=== PATIENT | male | born 1985 ===

== ENCOUNTER 2022-10-27 20:47 | Emergency (ER) | payer OTHER, SELFPAY ==
--- NOTE | ~2022-10-27 | XR_ITS ---
EXAMINATION: 1. Left forearm. 2. Left elbow 3. Left humerus CLINICAL INFORMATION: Trauma. Pain. COMPARISON: None. TECHNIQUE: 1. Left forearm. 2 views 2. Left elbow. 3 views 3. Left humerus. 2 views FINDINGS: 1. Left forearm. The mid and proximal shaft of the radius and ulna are normal. The wrist is unremarkable. 2. Left elbow. Slightly displaced fracture through the coronoid process of the ulna. The proximal radius is normal. Fluid in the elbow joint, hemarthrosis. 3. Left humerus. No fracture of the humerus. Shoulder is unremarkable. XR/XR elbow LT min 3V IMPRESSION: 1. Left forearm. Normal mid and proximal shaft of radius and ulna. 2. Left elbow. Slightly displaced fracture through the coronoid process of the ulna. 3. Left humerus. No acute abnormality of the humerus.
--- NOTE | ~2022-10-27 | XR_ITS ---
EXAMINATION: 1. Left forearm. 2. Left elbow 3. Left humerus CLINICAL INFORMATION: Trauma. Pain. COMPARISON: None. TECHNIQUE: 1. Left forearm. 2 views 2. Left elbow. 3 views 3. Left humerus. 2 views FINDINGS: 1. Left forearm. The mid and proximal shaft of the radius and ulna are normal. The wrist is unremarkable. 2. Left elbow. Slightly displaced fracture through the coronoid process of the ulna. The proximal radius is normal. Fluid in the elbow joint, hemarthrosis. 3. Left humerus. No fracture of the humerus. Shoulder is unremarkable. XR/XR forearm LT 2V IMPRESSION: 1. Left forearm. Normal mid and proximal shaft of radius and ulna. 2. Left elbow. Slightly displaced fracture through the coronoid process of the ulna. 3. Left humerus. No acute abnormality of the humerus.
--- NOTE | ~2022-10-27 | XR_ITS ---
EXAMINATION: 1. Left forearm. 2. Left elbow 3. Left humerus CLINICAL INFORMATION: Trauma. Pain. COMPARISON: None. TECHNIQUE: 1. Left forearm. 2 views 2. Left elbow. 3 views 3. Left humerus. 2 views FINDINGS: 1. Left forearm. The mid and proximal shaft of the radius and ulna are normal. The wrist is unremarkable. 2. Left elbow. Slightly displaced fracture through the coronoid process of the ulna. The proximal radius is normal. Fluid in the elbow joint, hemarthrosis. 3. Left humerus. No fracture of the humerus. Shoulder is unremarkable. XR/XR humerus LT IMPRESSION: 1. Left forearm. Normal mid and proximal shaft of radius and ulna. 2. Left elbow. Slightly displaced fracture through the coronoid process of the ulna. 3. Left humerus. No acute abnormality of the humerus.
[2022-10-27 21:39] VITALS: BP 138/74; PULSE 69; RESP 16; TEMP 36.6; O2SAT 99; BMI 28.3
--- NOTE | 2022-10-27 23:53 | ED_ITS ---
HPI - Extremity Problem General Chief complaint: Extremity Injury, Upper Stated complaint: Arm is broken? fall Time Seen by Provider: 10/27/22 23:47 Source: patient Mode of arrival: ambulatory Limitations: no limitations History of Present Illness HPI Narrative: Apparently patient was walking outside with his dog tripped over and fell landed on his left elbow came in with pain and swelling of over left elbow. No other injuries Related Data Previous Rx's Medication Instructions Recorded ibuprofen 600 mg tablet 600 mg PO Q6H PRN fever or pain 10/27/22 #30 tabs oxycodone 5 mg tablet 5 mg PO Q6H PRN pain #20 tabs 10/27/22 Allergies Allergy/AdvReac Type Severity Reaction Status Date / Time No Known Allergies Allergy Verified 10/27/22 21:38 Review of Systems Review of Systems: Yes all other systems are reviewed and are negative [facility] Social History Social History Patient Tobacco Use Status: Former Tobacco user Smoked in Last 30 Days: No Use of substances other than those prescribed or required for medical reasons: No Advance Directives: No Advance Directives Information Provided: No Physical Exam Vital Signs: Vital Signs: Last Vital Signs Temp 98.2 F 10/28/22 00:18 Pulse 60 10/28/22 00:18 Resp 20 10/28/22 00:18 BP 149/90 H 10/28/22 00:18 Pulse Ox 99 10/28/22 00:18 O2 Del Method Room Air 10/28/22 00:18 BMI result Body Mass Index 28.3 Appearance: Alert. Oriented X3. No acute distress. Eyes: PERRLA, No Nystagmus HEENT: Pharynx normal. Oral Mucosa moist AT NC Neck: Normal inspection. Neck supple. CVS: Normal heart rate and rhythm. Pulses normal. Respiratory: No respiratory distress. Equal air entry bilateral, Abdomen: Soft and nontender. Bowel sounds are present, Skin: Skin warm and dry. Normal skin color. Normal skin turgor. Extremities: No lower extremity edema. Tender swelling left elbow Neuro: Oriented X 3. No motor deficit. Extrem: Shoulder/upper arm images: 1. Tenderness with swelling neurovascular intact Medications Administered Discontinued Medications Generic Name Dose Route Start Last Admin Trade Name Freq PRN Reason Stop Dose Admin Oxycodone HCl 10 mg 10/27/22 23:53 10/28/22 00:17 Oxycodone Hcl Immed Release 5 Mg Tablet PO 10/27/22 23:54 10 mg ONCE ONE Administration Medical Decision Making Radiology Impression Discussion of test interpretation with radiology: I have reviewed the radiologist's reading. Radiologist Impression: XR/XR humerus LT IMPRESSION: 1.? Left forearm. Normal mid and proximal shaft of radius and ulna. 2.? Left elbow. Slightly displaced fracture through the coronoid process of the ulna. 3.? Left humerus. No acute abnormality of the humerus. Procedures Orthopedic Splinting/Casting Injury #1: Side: left Upper Extremity Injury Location: elbow Upper Extremity Immobilizer: sling/shoulder immobilizer and sugar tong splint Discharge Plan Discharge Clinical Impression: Elbow fracture, left Patient Disposition: Home, Self-Care Instructions: Elbow Fracture (ED) Additional Instructions: Keep your left arm in splint as provided Keep the left arm elevated Ibuprofen/oxycodone for pain Follow-up with orthopedic in a week Prescriptions: New ibuprofen 600 mg tablet 600 mg PO Q6H PRN (Reason: fever or pain) Qty: 30 0RF oxycodone 5 mg tablet 5 mg PO Q6H PRN (Reason: pain) Qty: 20 0RF Rx Instructions: Partial Fill upon patient request. Referrals: Darryl Fields MD [Physician] - 1 week Stand Alone Forms: Work/School Release Interventions: ED Discharge Assessment Last Done: 10/28/22 00:27 Discharge Date/Time: 10/28/22 00:31
[2022-10-28] MEDS: oxyCODONE HCl Immed Release 5 MG TABLET 10 MG PO (00:17)
[2022-10-28 00:18] VITALS: BP 149/90; PULSE 60; RESP 20; TEMP 36.8; O2SAT 99
--- NOTE | 2022-10-28 00:28 | PC.NURSE ---
pt medicated according to mar. pt ambulatory at discharge. vss. pt calm and cooperative. pt provided with discharge packet and work note. pt verbalized understanding of discharge plan
== END 2022-10-28 00:31 | disposition home or self-care (01) ==
PROVIDERS: Emergency Provider Internal Medicine
DX: S52.092A Other fracture of upper end of left ulna, initial encounter for closed fracture (principal); W01.0XXA Fall on same level from slipping, tripping and stumbling without subsequent striking against object, initial encounter; Y93.K1 Activity, walking an animal; Y92.414 Local residential or business street as the place of occurrence of the external cause; Y99.9 Unspecified external cause status; Z87.891 Personal history of nicotine dependence
CPT/HCPCS: 29105; 73060; 73080; 73090; 99283; 99284

== ENCOUNTER → 2022-11-04 09:50 | Outpatient (BNVA) | payer OTHER, SELFPAY | PROVIDERS: Visit Provider Physician Assistant | DX: S52.042A Displaced fracture of coronoid process of left ulna, initial encounter for closed fracture (principal) | CPT/HCPCS: 99202 ==

== ENCOUNTER 2022-11-06 18:02 | Emergency (ER) | payer OTHER, SELFPAY ==
--- NOTE | ~2022-11-06 | CT_ITS ---
Examination: CT left elbow without contrast. CLINICAL INDICATION: Pain left elbow. COMPARISON: Left elbow 10/27/2022. TECHNIQUE: Axial 3 mm thin and reformatted 1 mm thin sagittal and coronal images of left elbow were obtained. DLP 93 mGy/cm. This CT examination was performed using dose optimization technique as appropriate, variously including the following: Automated exposure control Adjustment of MA and/or KV according to patient size(this includes techniques or standardized protocols for targeted exams where dose is matched to indication/reason for exam; extremities or head. Use of iterative reconstruction techniques. FINDINGS: There is a small avulsion fracture along the intercondylar process with 2 mm anterior displacement. Also visualized is a small avulsion fracture tip of medial articulating olecranon process. A tiny bone fragment is also seen along the tip of posterior olecranon process likely a small enthesophyte. No additional fracture seen. There is minimal anterior joint effusion. FINDINGS: Small avulsion fracture with displacement of coronoid process. Tiny avulsion fracture medial anterior articulating olecranon process. Small enthesophyte along the tip of olecranon process posteriorly.
[2022-11-06 18:04] VITALS: BP 126/65; PULSE 83; RESP 18; TEMP 36.9; O2SAT 99; BMI 29.9
--- NOTE | 2022-11-06 18:04 | ED_ITS ---
HPI - General Adult General Chief complaint: Extremity Injury, Upper Stated complaint: Arm pain Time Seen by Provider: 11/06/22 18:08 Source: patient Mode of arrival: ambulatory Limitations: no limitations History of Present Illness HPI narrative: Patient is a 37 year old assigned male at with a history of a left ulnar fracture presenting to the emergency department today with left elbow pain. Patient states that he was just seen at the orthopedic office and told that he can stop wearing the sling and that they were going to get a CT scan to evaluate the fracture better. Patient states that his elbow is continuing to hurt, he needs a note for work, and he lost his sling. Patient denies any dizziness, lightheadedness, abdominal pain, nausea, vomiting, fever, chills, blurry vision, double vision, loss of vision, chest pain, difficulty breathing, shortness of breath, back pain, night sweats, pain with urination, increased urinary frequency, increased urinary urgency, blood in his urine or stool, syncope or a near syncopal episode, any new trauma or falls, bowel incontinence, bladder incontinence, bowel retention, bladder retention, or any other complaints at this time. Onset (ago): day(s) Location: left and upper extremity Radiation: non-radiation Severity: moderate Severity scale (1-10): 4 Pain Consistency: constant Relieving factors: immobilization Exacerbating factors: movement Associated symptoms: denies other symptoms Treatments prior to arrival: none Related Data Previous Rx's Medication Instructions Recorded ibuprofen 600 mg tablet 600 mg PO Q6H PRN fever or pain 10/27/22 #30 tabs oxycodone 5 mg tablet 5 mg PO Q6H PRN pain #20 tabs 10/27/22 Allergies Allergy/AdvReac Type Severity Reaction Status Date / Time No Known Allergies Allergy Verified 11/06/22 18:04 Review of Systems Constitutional: Constitutional: Reports no additional constitutional complaints, Denies chills, Denies fever(s) and Denies night sweats Eyes: Eyes: Reports no additional eye complaints, Denies blurry vision, Denies change in vision, Denies diplopia, Denies eye discharge, Denies loss of vision and Denies eye pain ENT: Denies dizziness Cardiovascular: Cardiovascular: Reports no additional cardiovascular complaints, Denies chest pain, Denies lightheadedness, Denies Loss of Consciousness and Denies dyspnea Respiratory: Respiratory: Reports no additional respiratory complaints and Denies dyspnea Gastrointestinal: Gastrointestinal: Reports no additional gastrointestinal complaints, Denies abdominal pain, Denies melena, Denies hematochezia, Denies change in bowel habits and Denies change in stool character Genitourinary: Genitourinary: Reports no additional male genitourinary complaints, Denies hematuria, Denies oliguria, Denies difficulty urinating, Denies dysuria, Denies urinary frequency, Denies urinary hesitancy, Denies urinary incontinence and Denies urinary urgency Musculoskeletal: Musculoskeletal: Reports no additional musculoskeletal complaints, Denies numbness and Denies tingling Comments: left elbow pain Neurologic: Denies dizziness, Denies loss of vision, Denies numbness and Denies tingling Psychiatric: Psychiatric: Reports no additional psychiatric complaints Endocrine: Endocrine: Reports no additional endocrine complaints Hematologic/Lymphatic: Hematologic/Lymphatic: Reports no additional hematologic/lymphatic complaints Allergic/Immunologic: Allergic/Immunologic: Reports no additional allergic/immunologic complaints PMFSH Past Medical History Attestation statement: The following information was validated with the patient. Source: old records reviewed and nursing notes reviewed Social History Social History Patient Tobacco Use Status: Former Tobacco user Advance Directives: No Advance Directives Information Provided: No Current occupational status: employed Current occupation: [employer] Physical Exam ED Vital Signs: Vital Signs - 24 hr 11/06/22 18:04 Temperature 98.4 F Pulse Rate 83 Respiratory Rate 18 Blood Pressure 126/65 Pulse Oximetry 99 Oxygen Delivery Method Room Air BMI result Body Mass Index 29.9 Const General: cooperative, no acute distress, alert and awake Nutritional Appearance: well nourished Orientation/consciousness: patient oriented x3 Limitations: no limitations HENUT Head: Yes normal to inspection and Yes atraumatic Ears: hearing grossly normal bilaterally and external ears normal General nose exam: Normal external nose present, no nasal discharge noted and no epistaxis Face and sinus: Yes normal facial exam, No abrasion and No laceration Mouth: Normal oral and palatal mucosa present, no drooling and no muffled voice Eyes General: appearance normal, both eyes and all related structures Periorbital: periorbital findings normal Eyelids: Yes eyelids normal Conjunctivae: conjunctivae normal Pupils: Equal, round and reactive pupils present EOM: EOMs intact bilaterally Neck Neck: Yes normal visual inspection, Yes full ROM and Yes no lymphadenopathy Chest Chest palpation & inspection: normal inspection of the chest Resp Effort & Inspection: normal respiratory effort and able to speak in complete sentences GI Inspection: Yes normal to inspection Neuro General: patient oriented x3 and moves all extremities Cranial nerves: Yes Equal, round and reactive pupils present Cognition (Neuro): normal cognition Motor exam (neuro): 5/5 motor strength present throughout Sensory Exam: Normal double simultaneous stimulation for sensation Coordination: [id number] test normal Extrem Other: pain with left elbow ROM General: Yes normal to inspection and Yes capillary refill normal Psych Appearance: grossly normal Mental Status: mental status grossly normal Affect: normal affect Attitude: cooperative Thought process: Normal thought process present Thought content: Normal thought content present Insight: Good insight present (Psych) Course Course Course Narrative: RME performed by Deyanira Mustafa PA-C. Patient is a 37 year old assigned male at presenting to the emergency department with left arm pain. Patient was seen by ortho 2 days ago for a left ulnar fx where they ordered a CT of the left elbow. However, patient is having much more pain now. Imaging ordered. Patient placed back in the waiting room pending room availability and results. Procedures Orthopedic Splinting/Casting Injury #1: Side: left Upper Extremity Injury Location: elbow Upper Extremity Immobilizer: sling/shoulder immobilizer Medical Decision Making Medical Decision Making MDM Narrative: Patient is a 37 year old assigned male at with a history of a left ulnar fracture presenting to the emergency department today with continued left elbow pain. Patient's physical exam showed pain with left elbow ROM. Patient's left elbow CT showed a left ulnar fracture. I explained my physical exam findings as well as all test results to the patient. I answered all questions asked by the patient. Patient's left elbow was placed back into a sling, without incident. I stressed the importance of the patient taking his medication as prescribed. I stressed the importance of the patient following up with his primary care provider and his orthopedic provider. I stressed the importance of the patient returning to the emergency department immediately if his symptoms were to worsen or if he were to develop any dizziness, shortness of breath, difficulty breathing, chest pain, blurry vision, loss of vision, nausea, vomiting, abdominal pain, fever, chills, back pain, or any other complaints. Patient verbalized agreement and understanding with this treatment plan and discharge. Differential Diagnosis Differential Diagnoses: The differential diagnosis associated with the presentation includes left ulnar fx Admission/Observation Consideration of admission/observation: Escalation of care including admission/observation considered Patient would have been admitted has his injury required immediate surgical intervention. Consult Healthcare Provider Management of the patient was discussed with: Browning Processor (spoke with the orthopedic team who recommended placing the patient back in a sling and having him follow up in the office.) Independent Interpretation I performed an independent interpretation of an: CT Scan Interpretation: My interpretation is in agreement with the radiologist's impression of this imaging study. Examination: CT left elbow without contrast. CLINICAL INDICATION: Pain left elbow. COMPARISON: Left elbow 10/27/2022. TECHNIQUE: Axial 3 mm thin and reformatted 1 mm thin sagittal and coronal images of left elbow were obtained. DLP 93 mGy/cm. This CT examination was performed using dose optimization technique as appropriate, variously including the following: Automated exposure control Adjustment of MA and/or KV according to patient size(this includes techniques or standardized protocols for targeted exams where dose is matched to indication/reason for exam;? extremities or head. Use of iterative reconstruction techniques. FINDINGS: There is a small avulsion fracture along the intercondylar process with 2 mm anterior displacement. Also visualized is a small avulsion fracture tip of medial articulating olecranon process. A tiny bone fragment is also seen along the tip of posterior olecranon process likely a small enthesophyte. No additional fracture seen. There is minimal anterior joint effusion. FINDINGS: Small avulsion fracture with displacement of coronoid process. Tiny avulsion fracture medial anterior articulating olecranon process. Small enthesophyte along the tip of olecranon process posteriorly. Dictated By: Justyn Chen MD Signed By: Electronically signed by Justyn Chen MD 11/06/221958 Critical Care Time Critical Care Time Critical Care Time: Yes Total Critical Care Time: 30 Attestation: I spent 30 minutes of Critical Care Time with this patient. This does not include time spent on separately reported billable procedures. Discharge Plan Discharge Clinical Impression: Fracture of coronoid process of left ulna Patient Disposition: Home, Self-Care Instructions: Elbow Fracture (ED), How to Use a Sling (ED) Additional Instructions: Follow up with your primary care provider and an orthopedic provider. Return to the emergency department immediately if your symptoms worsen or if you develop any dizziness, shortness of breath, difficulty breathing, chest pain, blurry vision, loss of vision, nausea, vomiting, abdominal pain, fever, chills, back pain, or any other complaints. Prescriptions: No Action ibuprofen 600 mg tablet 600 mg PO Q6H PRN (Reason: fever or pain) Qty: 30 0RF oxycodone 5 mg tablet 5 mg PO Q6H PRN (Reason: pain) Qty: 20 0RF Rx Instructions: Partial Fill upon patient request. Referrals: [facility] [place] Family Medicine [Provider Group] (Call to establish and follow up with a primary care provider. If you already have a primary care provider, please follow up with them.) [facility] [place] [facility] [Provider Group] (Call to establish and follow up with a primary care provider. If you already have a primary care provider, please follow up with them.) [facility] [place] Primary [facility] [Provider Group] (Call to establish and follow up with a primary care provider. If you already have a primary care provider, please follow up with them.) [facility] [Provider Group] (Call to schedule a follow up appointment now that your CT scan has been completed. ) Stand Alone Forms: Work/School Release Interventions: ED Discharge Assessment Last Done: 11/06/22 19:38 Discharge Date/Time: 11/06/22 19:39 Print Language: Polish
== END 2022-11-06 19:39 | disposition home or self-care (01) ==
PROVIDERS: Emergency Provider Internal Medicine
DX: S52.042A Displaced fracture of coronoid process of left ulna, initial encounter for closed fracture (principal); X58.XXXA Exposure to other specified factors, initial encounter; Y93.9 Activity, unspecified; Y92.9 Unspecified place or not applicable; Y99.9 Unspecified external cause status
CPT/HCPCS: 73200; 99282; 99284

== ENCOUNTER 2022-11-09 23:48 | Emergency (ER) | payer OTHER, SELFPAY ==
[2022-11-09 23:53] VITALS: BP 124/72; PULSE 60; RESP 16; TEMP 36.8; O2SAT 98; BMI 23.3
--- OUTSIDE RECORDS SUMMARY | 2022-11-10 01:08 | XMS_ITS | Continuity of Care Document ---
Author Name Unknown Organization [facility] ter Address [address] [place] [id number]- Care Team Providers Care Social Insurance Adviser Name Role Phone Not on Staff, PCP Primary Care Physician Unavail able Encounter [facility] Date(s): 10/29/22 - 10/30/[address] [address]- Encounter Diagnosis Radial head fracture(Final) - 10/30/22 Discharge Disposition: A-D/C Home Attending Physician: Sarah Davis MD Admitting Physician: Sarah Davis MD Referring Physician: Not on Staff, Referring MD Allergies, Adverse Reactions, Alerts No Known Allergies Immunizations Given and Recorded Vaccine Date Status Refusal Reason Hepatitis A Pediatric Vaccine 1 07/03/03 Given tetanus-diphtheria toxoids (Td) 2 08/19/00 Given tetanus-diphtheria toxoids (Td) 3 02/05/98 Given Poliovirus Vaccine, Inactivated 4 08/19/00 Given Poliovirus Vaccine, Inactivated 5 01/31/98 Given Poliovirus Vaccine, Inactivated 6 09/25/97 Given hepatitis B pediatric vaccine 7 01/26/99 Given hepatitis B pediatric vaccine 8 04/30/98 Given hepatitis B pediatric vaccine 9 02/05/98 Given Measles/Mumps/Rubella Virus Vaccine 10 12/02/97 Gi nelson Measles/Mumps/Rubella Virus Vaccine 11 10/02/97 Gi nelson Measles/Mumps/Rubella Virus Vaccine 12 09/25/97 Gi nelson diphtheria/tetanus/pertussis, acel(DTaP) 13 09/25/97 Given influenza virus vaccine, inactivated 14 04/30/90 G iven 1Admin Note: Given by nurse 2Admin Note: Given by nurse 3Admin Note: Given by nurse 4Admin Note: Given by nurse 5Admin Note: Given by nurse 6Admin Note: Given by nurse 7Admin Note: given by another practices. 8Admin Note: given by another practices. 9Admin Note: given by another practices. 10Admin Note: Given by nurse 11Admin Note: Given by nurse 12Admin Note: Given by nurse 13Admin Note: Give by nurse 14Admin Note: Given by nurse Medications ibuprofen 600 mg oral tablet 1 tablet = 600 mg, By Mouth, Daily at bedtime, with food or milk, # 20 tablet, 0 Refills, Maintenance Start Date: 09/12/10 Status: Ordered ondansetron 4 mg oral tablet, disintegrating 1 tablet = 4 mg, By Mouth, Every 6 hours, PRN as needed for nausea/vomiting, # 10 tablet, 0 Refills, Maintenance, 09/25/22 22:36:00 EDT, DIS Tablet, [facility], Partial fill upon patient request if the prescription is for a schedule II o... Start Date: 09/25/22 Status: Ordered Prilosec 40 mg oral enteric coated capsule 1 capsule, By Mouth, Daily, # 30 capsule, 0 Refills, EC Capsule Start Date: 07/09/09 Stop Date: 08/07/09 Status: Ordered Results Radiology Reports * Exam Date Time Procedure Performing Provider Status 10/29/22 9:48 PM Forearm 2 Views Left Charmaine Ortiz; Auth (Verified) Notes: (Forearm 2 Views Left) Reason For Exam: with Pain;Trauma RESULT: Forearm 2 Views Left Forearm 2 Views Left INDICATION: pt states he was seen 3-4 days ago at [facility] for a left arm fx, was splinted and states the pain is worse. Trauma; with Pain; Clinical Question(s): Fracture COMPARISON: None. FINDINGS: Mild volar displacement of the left radial head fracture fragment. The visualized joint spaces are normal. Cast material overlies the left forearm and elbow. IMPRESSION: Mildly displaced left radial head fracture. No prior studies are available for comparison. An actionable message (Garza) has been communicated via the [employer] system on 10/29/2022 11:11 PM, Message ID [id number]. I have personally reviewed the images and I agree with this report. WSN: [id number] Ordering Physician: Shoaib Schwartz Dictated By: Johan Boland DO Dictated Date/Time: 10/29/22 11:11 p Reviewed By: Lucas Trejo MD Signed By: Lucas Trejo MD Signed Date/Time: 10/29/22 11:16 pm Transcribed By: FARHAD Transcribed Date/Time: 10/29/22 10:59 pm Vital Signs Most recent to oldest [Reference Range]: 1 Oxygen Saturation [94-100 %] 99 % (10/29/22 11:04 PM) Pulse Rate [55-90 bpm] 60 bpm (10/29/22 11:04 PM) Blood Pressure [90-138/55-84 mm Hg] 134/ 87mm Hg (10/29/22 11:04 PM) Respiratory Rate [16-30 br/min] 15 br/mi n *L* (10/29/22 11:04 PM) Temperature [96.8-100.4 DegF] 98.2 DegF (10/29/22 11:04 PM) Mode of Delivery (Oxygen) Room air (10/29/22 11:04 PM) Blood pressure sites Arm, right (10/29/22 11:04 PM) Temperature Route Oral (10/29/22 11:04 PM) XR Radius and Ulna - left 2 Views * [facility] , CIS S: TRANSCRIBE Lucas Trejo MD: VERIFY Johan Boland DO: SIGN Event Display: Result: Authored Date: Forearm 2 Views Left INDICATION: pt states he was seen 3-4 days ago at [facility] for a left arm fx, was splinted and states the pain is worse. Trauma; with Pain; Clinical Question(s): Fracture COMPARISON: None. FINDINGS: Mild volar displacement of the left radial head fracture fragment. The visualized joint spaces are normal. Cast material overlies the left forearm and elbow. IMPRESSION: Mildly displaced left radial head fracture. No prior studies are available for comparison. An actionable message (Garza) has been communicated via the [employer]Focus system on 10/29/2022 11:11 PM, Message ID [id number]. I have personally reviewed the images and I agree with this report. WSN: [id number] Ordering Physician: Shoaib Schwartz Dictated By: Johan Boland DO Dictated Date/Time: 10/29/22 11:11 p Reviewed By: Lucas Trejo MD Signed By: Lucas Trejo MD Signed Date/Time: 10/29/22 11:16 pm Transcribed By: FARHAD Transcribed Date/Time: 10/29/22 10:59 pm Patient Care team information Care Team Personnel Name: Not on Staff, PCP Position: [facility] Physician (General Medicine) Member Role: PCP Name: *[facility], ED Attending Position: [facility] ED Attendings Patient Name: Monse Starkey Position: [facility] ED TA [facility] Name: Sarah Davis MD Position: [facility] Resident Member Role: ED Attending Physician Address: Address: [address] [place] [address] Name: Jaz Jorge RN Position: [facility] ED RN W/OE and Tasks Member Role: Patient Care Provider Care Team Related Persons Name: KATHLEEN DURBIN Address: [place] [address]
--- OUTSIDE RECORDS SUMMARY | 2022-11-10 01:08 | XMS_ITS | Continuity of Care Document ---
Author Name Unknown Organization [facility] ter Address [address] [place] [id number]- Care Team Providers Care Carbon Paper Interleafer Name Role Phone Mary Anne MILLER, Gala Kan Primary Care Physician Encounter [facility] Date(s): 09/25/22 - 09/25/[address] [address]- Encounter Diagnosis Gastroenteritis(Final) - 09/25/22 Discharge Disposition: A-D/C Home Attending Physician: Giancarlo Chris MD Admitting Physician: Giancarlo Chris MD Referring Physician: Not on Staff, Referring [...] Refills, Maintenance, 09/25/22 22:36:00 EDT, DIS Tablet, [facility], Partial fill upon patient request if the prescription is for a schedule II o... Start Date: 09/25/22 Status: Ordered Prilosec 40 mg oral enteric coated capsule 1 capsule, By Mouth, Daily, # 30 capsule, 0 Refills, EC Capsule Start Date: 07/09/09 Stop Date: 08/07/09 Status: Ordered Results Radiology Reports * Exam Date Time Procedure Performing Provider Status 09/25/22 7:[address] Abd/Pelvis W/ IV Contrast Only Africa Smith; Auth (Verified) Notes: (CT Abd/Pelvis W/ IV Contrast Only) Reason For Exam: LLQ abdominal pain;Other: RESULT: CT Abd/Pelvis W/ IV Contrast Only CT Abd/Pelvis W/ IV Contrast Only HX OF PRESENT ILLNESS: Pt BIBA from home with chest pain SOB since 8 am. Reports N V D chills starting at the same time. 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 A ox4; Reason: LLQabdominal pain; Clinical Question(s): Obstruction TECHNIQUE: Spiral CT through the abdomen and pelvis with IV contrast formatted in 3 planes. 100 cc of Omnipaque 300 was administered intravenously. This study was performed without oral contrast. Weight-based protocol using automatic tube modulation was used to optimize exposure parameters. CTDIvol Body: 18.20 mGy, DLP Body: 974 mGy*cm. COMPARISON: None. FINDINGS: Cargo Trimmer View Findings, Lines and Tubes: None. Visualized Chest: Lung bases are clear. No pleural effusion. The heart is normal in size. No pericardial effusion. Diaphragm: Normal. Liver: Diffuse low-attenuation throughout the liver parenchyma consistent with hepatic steatosis. No evidence of mass. Gallbladder: Absent consistent with prior cholecystectomy. Bile ducts: No biliary ductal dilation. Spleen: Normal. Pancreas: Normal. Adrenal glands: Normal. Kidneys and ureters: No hydronephrosis, stones, or suspicious masses. Bladder: Normal. Reproductive organs: Moderate prostatomegaly. Otherwise unremarkable. Stomach, small bowel, and large bowel: Unremarkable stomach, small and large bowel. No evidence of bowel obstruction or acute inflammation. Appendix: Normal. Peritoneum and retroperitoneum: No ascites or pneumoperitoneum. No omental or mesenteric lesions. Lymph nodes: No enlarged lymph nodes. Blood vessels: Mild vascular calcifications but no aneurysm. No evidence of venous thrombosis. Abdominal and pelvic wall: Unremarkable. Bones: No acute abnormality. IMPRESSION: No acute abnormality of the abdomen or pelvis to explain symptoms. I have personally reviewed the images and I agree with this report. WSN: [id number] Ordering Physician: Lucía Eid Dictated By: Rosanne Faria MD Dictated Date/Time: 09/25/22 7:22 pm Reviewed By: Marcos Flores MD Signed By: Marcos Flores MD Signed Date/Time: 09/25/22 7:27 pm Transcribed By: FARHAD Transcribed Date/Time: 09/25/22 7:20 pm Vital Signs Most recent to oldest [Reference Range]: 1 2 3 Oxygen Saturation [94-100 %] 100 % (09/26/22 12:05 AM) 99 % (09/25/22: PM) 97 % (09/25/22: PM) Pulse Rate [55-90 bpm] 62 bpm (09/26/22 12:05 AM) 60 bpm (09/25/22: PM) 63 bpm (09/25/22: PM) Blood Pressure [90-138/55-84 mm Hg] 104/58mm Hg (09/26/22 12:05 AM) 115/48mm Hg (09/25/22: PM) 118/82mm Hg (09/25/22 8:28 PM) Respiratory Rate [16-30 br/min] 18 br/min (09/26/22 12:05 AM) 14 br/min *L* (09/25/22 10:23 PM) 18 br/min (09/25/22 8:28 PM) Temperature [96.8-100.4 DegF] 97.9 DegF (09/25/22 5:52 PM) Mode of Delivery (Oxygen) Room air (09/26/22 12:05 AM) Room air (09/25/22 10:23 PM) Room air (09/25/22 8:28 PM) Blood pressure sites Arm, right (09/26/22 12:05 AM) Arm, right (09/25/22 10:23 PM) Arm, right (09/25/22 8:28 PM) Temperature Route Oral (09/25/22 5:52 PM) Note * Director Lucía THOMAS: PERFORM Event Display: Patient Education Leaflets Authored Date: [id number] Noninfectious Gastroenteritis (Adult) ?? [id number] Noninfectious Gastroenteritis (Adult) Gastroenteritis can cause nausea, vomiting, diarrhea, and cramping in the belly. This may occur from food sensitivity, inflammation of your??digestive tract, medicines, stress, or other causes not related to infection.??Your symptoms will??usually??last from 1 to 3 days, but can last longer.??Antibiotics don't work against this illness. Simple home treatment will help. Home care Medicine ??? You may use acetaminophen??or NSAID medicines such as ibuprofen or naproxen to control fever, unless another medicine is prescribed. If you have chronic liver or kidney disease, or ever had a stomach ulcer or digestive bleeding, talk with your healthcare provider before using these medicines.)Aspirin should never be used in anyone under 18 years of age who is ill with a fever. It may cause severe liver damage. Don't increase your NSAID medicines if you are already taking these medicines foranother condition such as arthritis. Don't use NSAIDs if you are on aspirin. For example, if you take aspirin for heart disease or after a stroke. ??? If medicines for diarrhea or vomiting??are prescribed, take only as directed. General care and preventing spread of the illness ??? If symptoms are severe, rest at home for the next 24 hours or until you feel better. ??? Washing your hands with soap and clean, running water is the best way to prevent the spread of infection. Wash your hands after touching anyone who is sick. ??? Teach all people in your home when and how towash their hands Wet your hands with clean, running water. Lather soap on the backs of your hands, between your fingers, and under your nails. Scrub your hands for at least 20 seconds. If you need a timer, try humming the Happy Birthday song from beginning to end twice. Rinse your hands well and dry using a clean towel. ??? Wash your hands after using the toilet, touching animals, coughing or sneezing, preparing meals, and before eating meals. ??? Clean the toilet after each use. ??? Caffeine, tobacco, and alcohol can make your diarrhea, cramping, and pain worse. Consider having less or giving up these things until you have recovered. Diet ??? Water and clear liquids are important so you don't get dehydrated. Drink a small amount at a time. ??? Don't force yourself to eat, especially if you have cramps, vomiting, or diarrhea. When you finally decide to start eating, don't eat large amounts at a time, even if you are hungry. ??? If you eat, don't have fatty, greasy, spicy, or fried foods. ??? Don't eat dairy products if you have diarrhea. They can make the diarrhea worse. During the first 24 hours (the first full day), follow the diet below ??? Beverages. Water, clear liquids, soft drinks without caffeine, mineral water (plain or flavored), and decaffeinated tea and coffee. ??? Soups. Clear broth, consomm??, and bouillon. Sports drinks aren't a good choice because they have too much sugar and not enough electrolytes. In this case, useproducts called oral rehydration solutions. ??? Desserts. Plain gelatin, ice pops, and fruit juice bars. During the next 24 hours??(the second day) During the second day, you may add to the above list if you are better. If not, continue what you did the first day. ??? Hot cereal, plain toast, bread, rolls, or crackers ??? Plain noodles, rice, mashed potatoes, orchicken noodle or rice soup ??? Unsweetened canned fruit and bananas. Don't eat pineapple or citrus. ??? Limit caffeine and chocolate. No spices or seasonings except salt. During the next 24 hours ??? Gradually go back to a normal diet, as you feel better and your symptoms improve. ??? If at any time your symptoms start getting worse, go back to clear liquids until youfeel better. ?? Food preparation ??? If you have diarrhea, don't prepare food for others. When you?? prepare food for yourself, wash your hands before and after. ??? Wash your hands after using cutting boards, countertops, and knives that have been in contact with raw food. ??? Keep uncooked meats away from cookedand [id number] foods. ?? Follow-up care Follow up with your??healthcare provider if you are not improving over the next 2 to 3 days, or as advised. If a stool (diarrhea) sample was taken,??call for the results as directed. ?? Call 911 Call 911 if any of these occur: ??? Trouble breathing ??? Chest pain ??? Confusion ??? Severe drowsiness or trouble awakening ??? Seizure ??? Stiff neck ?? When to seek medical advice Call your healthcare provider right away if any of these occur:? Increasing belly pain or constant lower right belly pain ??? Continued vomiting (unable to keep liquids down) ??? Frequent diarrhea (more than 5 times a day) ??? Blood in vomit or stool (black or red color) ??? Inability to tolerate solid food after a few days. ??? Dark urine, reduced urine output ??? Weakness or dizziness ??? D rowsiness ??? Fever of 100.4??F (38.0??C) or higher, or as directed by your healthcare provider ???New rash ??? Symptoms get worse or you have new symptoms ?? Last Reviewed Date: 2021 ?? [id number] [employer]. All rights reserved. This information is not intended as a substitute for professional medical care. Always follow your healthcare professional's instructions. ?? CT Abdomen and Pelvis W contrast IV * [facility] , CIS S: TRANSCRIBE Marcos Flores MD: VERIFY Rosanne Faria MD: SIGN Event Display: Result: Authored Date: CT Abd/Pelvis W/ IV Contrast Only HX OF PRESENT ILLNESS: Pt BIBA from home with chest pain SOB since 8 am. Reports N V D chills starting at the same time. 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 A ox4; Reason: LLQabdominal pain; Clinical Question(s): Obstruction TECHNIQUE: Spiral CT through the abdomen and pelvis with IV contrast formatted in 3 planes. 100 cc of Omnipaque 300 was administered intravenously. This study was performed without oral contrast. Weight-based protocol using automatic tube modulation was used to optimize exposure parameters. CTDIvol Body: 18.20 mGy, DLP Body: 974 mGy*cm. COMPARISON: None. FINDINGS: Cargo Trimmer View Findings, Lines and Tubes: None. Visualized Chest: Lung bases are clear. No pleural effusion. The heart is normal in size. No pericardial effusion. Diaphragm: Normal. Liver: Diffuse low-attenuation throughout the liver parenchyma consistent with hepatic steatosis. No evidence of mass. Gallbladder: Absent consistent with prior cholecystectomy. Bile ducts: No biliary ductal dilation. Spleen: Normal. Pancreas: Normal. Adrenal glands: Normal. Kidneys and ureters: No hydronephrosis, stones, or suspicious masses. Bladder: Normal. Reproductive organs: Moderate prostatomegaly. Otherwise unremarkable. Stomach, small bowel, and large bowel: Unremarkable stomach, small and large bowel. No evidence of bowel obstruction or acute inflammation. Appendix: Normal. Peritoneum and retroperitoneum: No ascites or pneumoperitoneum. No omental or mesenteric lesions. Lymph nodes: No enlarged lymph nodes. Blood vessels: Mild vascular calcifications but no aneurysm. No evidence of venous thrombosis. Abdominal and pelvic wall: Unremarkable. Bones: No acute abnormality. IMPRESSION: No acute abnormality of the abdomen or pelvis to explain symptoms. I have personally reviewed the images and I agree with this report. WSN: [id number] Ordering Physician: Lucía Eid Dictated By: Rosanne Faria MD Dictated Date/Time: 09/25/22 7:22 pm Reviewed By: Marcos Flores MD Signed By: Marcos Flores MD Signed Date/Time: 09/25/22 7:27 pm Transcribed By: FARHAD Transcribed Date/Time: 09/25/22 7:20 pm Patient Care team information Care Team Personnel Name: Mary Anne VIDEO RECORDER MECHANIC, Gala Kan Position: [facility] PCO Associate Professional Member Role: PCP Address: Address: [address] [place] [address]- Name: Director Lucía THOMAS Position: [facility] Resident Member Role: ED Resident Address: Address: [address] [place] [address] Name: Giancarlo Chris MD Position: [facility] ED Medicine MD Member Role: Admitting Physician Address: Address: [address] [place] [address] Department of Emergency Medicine [address] Name: Tiff Delaney RN Position: [facility] ED RN W/OE and Tasks Member Role: Patient Care Provider Name: Arabella Castillo Position: [facility] ED TA [place] Name: Deloris Atwood RN Position: [facility] ED RN W/OE and Tasks Member Role: Patient Care Provider Care Team Related Persons Name: KATHLEEN DURBIN Address: [place] [address]
--- OUTSIDE RECORDS SUMMARY | 2022-11-10 01:08 | XMS_ITS | Continuity of Care Document ---
Author Name Unknown Organization [facility] ter Address [address] [place] [address]- Care Team Providers Care Rawhide Bone Roller Name Role Phone Not on Staff, PCP Primary Care Physician Unavail able Encounter [facility] Date(s): 09/07/22 - 09/07/[address] [address]- Discharge Disposition: A-D/C Walkout Attending Physician: Not on Staff, Attending MD Admitting Physician: Not on Staff, Admitting MD Referring Physician: Not on Staff, Referring [...] Refills, Maintenance Start Date: 09/12/10 Status: Ordered Prilosec 40 mg oral enteric coated capsule 1 capsule, By Mouth, Daily, # 30 capsule, 0 Refills, EC Capsule Start Date: 07/09/09 Stop Date: 08/07/09 Status: Ordered Vital Signs Most recent to oldest [Reference Range]: 1 2 Oxygen Saturation [94-100 %] 99 % (09/07/22 10:24 AM) 99 % (09/07/22 10:14 AM) Pulse Rate [55-90 bpm] 90 bpm (09/07/22 10:24 AM) 79 bpm (09/07/22 10:14 AM) Blood Pressure [90-138/55-84 mm Hg] 145/ 75mm Hg *H* (09/07/22 10:24 AM) Respiratory Rate [16-30 br/min] 16 br/mi n (09/07/22 10:24 AM) 18 br/min (09/07/22 10:14 AM) Temperature [96.8-100.4 DegF] 97.6 DegF (09/07/22 10:24 AM) Mode of Delivery (Oxygen) Room air (09/07/22 10:24 AM) Room air (09/07/22 10:14 AM) Blood pressure sites Arm, left (09/07/22 10:24 AM) Temperature Route Oral (09/07/22 10:24 AM) Patient Care team information Care Team Personnel Name: Not on Staff, PCP Position: S Physician (General Medicine) Member Role: PCP Care Team Related Persons Name: BIANKA DURBIN Address: [place] [id number]
--- NOTE | 2022-11-10 01:20 | PC.NURSE ---
pt c/o L arm pain, in a sling 03/29 pain aox3 no apparent distress
--- NOTE | 2022-11-10 01:53 | ED_ITS ---
HPI - Extremity Problem General Chief complaint: Extremity Injury, Upper Stated complaint: ?left arm broken Time Seen by Provider: 11/10/22 01:38 Source: patient Mode of arrival: ambulatory Limitations: no limitations History of Present Illness HPI Narrative: 37-year-old male [id number] return to the ED for left elbow pain. Patient was seen and evaluated by orthopedic had CT of the left elbow which co nfirmed a displaced fracture of coronoid process of left ulna , patient is awaiting for a phone call from Dr. Fields office to discuss the ultimate plan. patient is wearing a sling complaining of pain in the left elbow. Related Data Previous Rx's Medication Instructions Recorded ibuprofen 600 mg tablet 600 mg PO Q6H PRN fever or pain 10/27/22 #30 tabs oxycodone 5 mg tablet 5 mg PO Q6H PRN pain #20 tabs 10/27/22 Allergies Allergy/AdvReac Type Severity Reaction Status Date / Time No Known Allergies Allergy Verified 11/06/22 18:04 Review of Systems Review of Systems: All other systems are reviewed and are negative Constitutional: Reports as per HPI and Reports no additional constitutional complaints Eyes: Reports as per HPI and Reports no additional eye complaints Reports system reviewed and no additional complaints, except as documented Cardiovascular: Reports as per HPI and Reports no additional cardiovascular complaints Respiratory: Reports as per HPI and Reports no additional respiratory complaints Gastrointestinal: Reports as per HPI and Reports no additional gastrointestinal complaints Genitourinary: Reports no additional female genitourinary complaints Musculoskeletal: Reports no additional musculoskeletal complaints Skin/Breast: Reports system reviewed and no additional complaints, except as docu Psychiatric: Reports no additional psychiatric complaints Endocrine: Reports no additional endocrine complaints Hematologic/Lymphatic: Reports no additional hematologic/lymphatic complaints Allergic/Immunologic: Reports no additional allergic/immunologic complaints Reports system reviewed and no additional complaints, except as documented and Reports Abnormal speech present [facility] Social History Social History Patient Tobacco Use Status: Former Tobacco user Advance Directives: No Advance Directives Information Provided: Yes Current occupational status: employed Current occupation: [employer] Physical Exam Vital Signs: Vital Signs: Last Vital Signs Temp 98.2 F 11/09/22 23:53 Pulse 60 11/09/22 23:53 Resp 16 11/09/22 23:53 BP 124/72 11/09/22 23:53 Pulse Ox 98 11/09/22 23:53 O2 Del Method Room Air 11/09/22 23:53 BMI result Body Mass Index 23.3 vital signs have been reviewed as appeared to be correct. Blood pressure normal. Heart rate normal. Respiration rate normal. Temperature normal. Oxygen saturation normal. Appearance: Alert. Oriented X3. No acute distress. Head: Normal external exam. Normocephalic. Atraumatic. No Bell signs noted. No raccoon eyes noted Eyes: PERRLA. EOMI. Conjunctiva and sclera normal. Eyelids normal. ENT: TM's Normal. Pharynx normal. Uvula midline. Moist mucous membranes. No trismus noted. No drooling noted. No muffled voice noted. Neck: Normal inspection. Neck supple. FROM. No adenopathy. Thyroid Normal. No meningeal signs. No neck mass noted. CVS: Normal heart rate and rhythm. Heart sound normal. No murmurs noted. Pulses normal throughout. Respiratory: No respiratory distress. Painless inspiration. Breath sounds normal. No wheezes/rales/rhonchi noted. Chest nontender. No accessory muscle usage noted or decreased air movement noted. Abdomen: Soft and nontender. Bowel sounds normal in all 4 quadrants. No distention noted. No organomegaly noted. No visible injury noted. Back: No CVA tenderness. Full range of motion noted. Skin: Skin warm and dry. Normal skin color. Normal skin turgor. No rashes/lesions/lacerations noted. Extremities: Left upper extremity exam: Mild tenderness over left elbow otherwise neurovascular intact. Neuro: Oriented X 3. Cranial nerve exam: II-XII are grossly intact No motor deficit. No sensory deficit. Reflexes normal. Course Course Course Narrative: Will give the patient oxycodone continue with the sling and call Dr. Fields's office to arrange for follow-up. Medical Decision Making Differential Diagnosis Differential Diagnoses: The differential diagnosis associated with the presentation includes ( Left elbow fracture) Discharge Plan Discharge Clinical Impression: Fracture of coronoid process of left ulna Patient Disposition: Home, Self-Care Instructions: Elbow Fracture (ED) Prescriptions: No Action ibuprofen 600 mg tablet 600 mg PO Q6H PRN (Reason: fever or pain) Qty: 30 0RF oxycodone 5 mg tablet 5 mg PO Q6H PRN (Reason: pain) Qty: 20 0RF Rx Instructions: Partial Fill upon patient request. Referrals: Darryl Fields MD [Physician] - Stand Alone Forms: Work/School Release
[2022-11-10] MEDS: oxyCODONE HCl Immed Release 5 MG TABLET PO (02:47)
--- NOTE | 2022-11-10 02:48 | PC.NURSE ---
Discharge instructions given and explained to patient aox4 no apparent distress ambulates safely and independently
== END 2022-11-10 02:49 | disposition home or self-care (01) ==
PROVIDERS: Emergency Provider Emergency Medicine
DX: M25.522 Pain in left elbow (principal); S52.045D Nondisplaced fracture of coronoid process of left ulna, subsequent encounter for closed fracture with routine healing; X58.XXXD Exposure to other specified factors, subsequent encounter
CPT/HCPCS: 99212; 99283

== ENCOUNTER 2022-12-09 06:27 | Outpatient (REF) | payer OTHER, SELFPAY | END 2022-12-09 06:28 | disposition home or self-care (01) | LOC: HO.HOSX 06:27 | PROVIDERS: Visit Provider Physician Assistant | DX: S52.042D Displaced fracture of coronoid process of left ulna, subsequent encounter for closed fracture with routine healing (principal) | CPT/HCPCS: 73080; 99212 ==

== ENCOUNTER 2023-01-20 07:48 | Outpatient (REF) | payer OTHER, SELFPAY | END 2023-01-20 07:49 | disposition home or self-care (01) | LOC: HO.HOSX 07:48 | PROVIDERS: Visit Provider Physician Assistant | DX: Z13.89 Encounter for screening for other disorder (principal) ==

== ENCOUNTER 2024-06-15 07:43 | Emergency (ER) | payer OTHER, SELFPAY ==
--- NOTE | ~2024-06-15 | XR_ITS ---
EXAMINATION: XR FOREARM, LEFT CLINICAL INFORMATION: Fx in October, ongoing pain COMPARISON: Left elbow 12/09/2022, 10/27/2022. TECHNIQUE: AP and lateral views of the left forearm were obtained. FINDINGS: No fracture, dislocation, or suspicious bone lesion. No evidence of joint effusion in the elbow. There is a small olecranon spur at the insertion of the triceps tendon. There is joint space narrowing of the ulnar trochlear joint with mild marginal spurring, consistent with degenerative arthritis. There is minimal spurring of the radiocapitellar joint without loss of joint space. Remainder the bony and soft tissue structures appear normal. XR/XR forearm LT 2V IMPRESSION: 1. No acute findings left forearm. 2. Degenerative changes in the elbow joint. No joint effusion. Electronically signed by: Favio Harmon MD 06/15/2024 09:19 AM CANDY
[2024-06-15 07:46] VITALS: BP 111/64; PULSE 61; RESP 16; TEMP 36.6; O2SAT 100; BMI 33.8
--- NOTE | 2024-06-15 10:39 | ED.EXTPRO ---
HPI - Extremity Problem General Chief complaint: Extremity Problem Stated complaint: L arm pain Time Seen by Provider: 06/15/24 10:39 Source: patient Mode of arrival: ambulatory Limitations: no limitations History of Present Illness ED Provider: Tiff Alvarez NP HPI Narrative: Patient is a 38-year-old male who presents emergency department for evaluation of persistent left elbow pain. He reports a fracture to the arm a few months ago . States that he wore a sling for approximately 1 week. He has continued to have ongoing issues with pain, increased pain with lifting of things and twisting of his arm. He states that he missed work today due to his pain and he requires a work note On review of his medical record, date of initial injury was 10/27/2022 suddenly he had tripped over dog subsequently falling onto the left elbow, with initial XR imaging obtained 10/27/2022 revealing a slightly displaced fracture through the coronoid process of the left ulna, subsequently elbow CT on 11/06/2022 revealed small avulsion fracture with displacement of the coronoid process the tiny avulsion fracture and medial anterior articulating olecranon process. He followed up with Orthopedics, unfortunately did not appear to have established occupational therapy though he was advised to. He had a repeat x-ray 12/09/2022 which showed no evidence of acute fracture. He states he never did OT or PT. Related Data Allergies Allergy/AdvReac Type Severity Reaction Status Date / Time No Known Allergies Allergy Verified 06/15/24 07:49 Review of Systems Review of Systems: Yes all other systems are reviewed and are negative PMFSH Past Medical History Attestation statement: The following information was validated with the patient. 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 No acute distress.?Normal affect.? CVS: Heart sounds normal. Normal heart rate and rhythm.? Pulses normal.?? Respiratory: No respiratory distress.? Lung sounds clear to auscultation bilaterally?? Skin: Skin warm and dry.? Normal skin color.? Extremities: No extremity edema.? 2+ radial pulse bilaterally. Full range of motion to the left elbow. Neuro: Moves all extremities spontaneously. Sensation intact bilaterally. Ambulates with normal steady gait. Medical Decision Making Medical Decision Making MDM Narrative: Patient is a 38-year-old male who presents to the emergency department for evaluation of persistent left elbow pain. As per HPI he reports his initial injury to be a few months ago but rather this was in October of 2022, essentially a year and a half ago. He has continued to have pain daily since this injury. When asked he reports taking Tylenol and ibuprofen though he can not tell me exactly how much he is taking or with any frequency. It seems as though he might take a single dose of 1 or the other daily if at all. As per HPI, he had subsequent radiographic imaging after the initial injury which did not show any evidence of acute fracture. XR was obtained prior to my assumption of care today and is without evidence of acute fracture, he has had no repeat injury to suggest an acute fracture indication for emergent CT. He was advised after the initial injury that he should work with occupational therapy to gain adequate range of motion, he was advised to follow-up subsequently 6 weeks after his last visit on 12/09/2022 but he never followed up nor did the therapy as advised. He states ?nobody called me? and he has been too busy with work to call the office to address it. The extremities neurovascularly intact distally. Suggested that he follow-up with his PCP/Orthopedics for determination as to whether they would consider course of occupational and/or physical therapy at this point. I advised consistent conservative measures with adequate levels of analgesia. He will be provided with a work note for today. Differential Diagnosis Differential Diagnoses: The differential diagnosis associated with the presentation includes (Tendinitis, chronic pain, unlikely fracture/dislocation.) Independent Interpretation I performed an independent interpretation of an: Plain X-Ray (No acute fracture) Radiology Impression Discussion of test interpretation with radiology: I have reviewed the radiologist's reading. Radiologist Impression: XR/XR forearm LT 2V IMPRESSION: 1. No acute findings left forearm. 2. Degenerative changes in the elbow joint. No joint effusion. External Record Review External record reviewed: Outpatient record (as per hpi) Prescription Management I considered prescription management with: Pain Medication Discharge Plan Discharge Clinical Impression: Arthritis of elbow, left Patient Disposition: Home, Self-Care Instructions: Osteoarthritis (ED) Additional Instructions: Your initial injury was in October of 2022 when you had a fracture in your left elbow. X-ray today does not show any evidence fracture. You can take ibuprofen 200 mg, 3 tablets (600mg) every 6-8 hours as needed for pain, in addition to Tylenol 500 mg, 2 tablets (1,000mg) every 4-6 hours as needed for pain, but not to exceed 3 doses daily (3,000mg).? You may contact your primary care doctor consider contacting the orthopedist office for re-evaluation and/or consideration of physical/occupational therapy. Referrals: [facility] [place] [facility] [Provider Group] ED Physician,Generic [Emergency Provider] - Stand Alone Forms: Work/School Release Print Language: Choose Not To Answer
[2024-06-15] MEDS: Acetaminophen 325 MG TABLET 975 MG PO (11:24)
[2024-06-15 11:27] VITALS: BP 111/64; PULSE 61; RESP 16; TEMP 36.6; O2SAT 100
== END 2024-06-15 11:27 | disposition home or self-care (01) ==
PROVIDERS: Emergency Provider Emergency Medicine
DX: M19.022 Primary osteoarthritis, left elbow (principal); M79.602 Pain in left arm
CPT/HCPCS: 73090; 99283

== ENCOUNTER → 2024-06-15 08:06 | Outpatient (BNV) | payer OTHER, SELFPAY | PROVIDERS: Visit Provider Radiology Diagnostic Radiology | DX: M19.022 Primary osteoarthritis, left elbow (principal) | CPT/HCPCS: 73090 ==

== ENCOUNTER 2024-07-16 12:55 | Outpatient (REF) | payer OTHER, SELFPAY | END 2024-07-16 12:56 | disposition home or self-care (01) | LOC: HO.HOSX 12:55 | PROVIDERS: Visit Provider Physician Assistant | DX: Z13.89 Encounter for screening for other disorder (principal) ==